=== PATIENT | male | born 1970 | race Caucasian/White ===

== ENCOUNTER 2020-12-19 18:20 | Emergency (ER) | payer OTHER ==
[2020-12-19 18:45] VITALS: BMI 27.4
[2020-12-19] MEDS ORDERED: BAMLANIVIMAB 700 MG in SODIUM CHLORIDE 250 ML IVPB ONE (19:43)
[2020-12-19 20:30] LABS: HEMATOCRIT 38.9 % (35.4-49); HEMOGLOBIN 12.9 GM/dL (11.7-16.9); MCH 27.8 pg (25.7-33.7); MCHC 33.1 g/dl (32.0-35.9); MEAN CELL VOLUME 84.2 fl (80-96); MEAN PLT VOLUME 9.4 fl (7.5-11.1); PLATELET COUNT 183 K/MM3 (134-434); RBC 4.62 M/mm3 (4.00-5.60)
[2020-12-19 20:41] LABS: POTASSIUM 4.6 mmol/L (3.5-5.1)
[2020-12-19 20:44] LABS: CALCIUM 8.6 mg/dL (8.5-10.1)
[2020-12-19 20:45] LABS: BLOOD UREA NITROGEN 10.6 mg/dL (7-18)
[2020-12-19 20:47] LABS: CREATININE 0.8 mg/dL (0.55-1.3)
[2020-12-19 20:54] VITALS: TEMP 98.2
[2020-12-19 22:23] VITALS: BP 157/70; PULSE 74
== END 2020-12-19 22:53 | disposition home or self-care (01) ==
LOC: JER 18:20
DX: U07.1 COVID-19 (principal)
CPT/HCPCS: 36415; 80048; 82962; 85027; 99284-25; M0239; Q0239